=== PATIENT | female | born 2000 | race African-American/Black ===

== ENCOUNTER 2022-05-03 20:47 | Emergency (ER) | payer BC, SELFPAY ==
[2022-05-03 20:48] VITALS: BP 118/51; PULSE 112; RESP 20; TEMP 36.7; O2SAT 98
--- NOTE | 2022-05-03 20:55 | ED.ALLEREA ---
HPI - Allergic Reaction General Chief complaint: Allergic Reaction Stated complaint: allergic reaction Time Seen by Provider: 05/03/22 20:54 Source: patient and RN notes reviewed Mode of arrival: ambulatory Limitations: no limitations History of Present Illness HPI narrative: Patient is 21 years old white female came to the emergency room with itching, hives, hard to breathe, tingling in her throat. Started on Thursday which is 4 days ago after starting on Z-Artur for bilateral ear infection. Patient went see her family physician yesterday. The Z-Artur and the start of her on doxycycline, Benadryl and Medrol Dosepak. Patient received 6 tablets yesterday and nothing today. History of penicillin allergy. Related Data Allergies Allergy/AdvReac Type Severity Reaction Status Date / Time Penicillins Allergy Swelling Verified 05/03/22 20:52 of Lip/Tongue/Throat Review of Systems Review of Systems: All systems reviewed & are unremarkable except as noted in HPI and below Exam Narrative: General appearance: Well-developed, well-nourished Skin: Erythematous skin of the face trunk and abdomen Head: Normocephalic, nontraumatic Eyes: Clear conjunctiva ENT: Oropharynx normal, ears normal, nose normal Neck: Supple, nontender Chest and respiratory: Airway patent, no respiratory distress, no accessory muscle use Heart: Regular rate/rhythm Abdomen: Soft, nontender, no organomegaly, quiet bowel sounds Vascular: Normal peripheral pulses, normal capillary refill. 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, no gross motor deficit Course Course Emergency Course: Improving Vital Signs Vital signs: Vital Signs Temperature 36.7 C 05/03/22 20:48 Pulse Rate 112 H 05/03/22 20:48 Respiratory Rate 05/03/22 20:48 Blood Pressure 118/51 L 05/03/22 20:48 Pulse Oximetry 98 05/03/22 20:48 Oxygen Delivery Room Air 05/03/22 20:48 Temperature 36.7 C 05/03/22 20:48 Pulse Rate 112 H 05/03/22 20:48 Respiratory Rate 20 05/03/22 20:48 Blood Pressure 118/51 L 05/03/22 20:48 Pulse Oximetry 98 05/03/22 20:48 Oxygen Delivery Room Air 05/03/22 20:48 MDM - Allergic Reaction Differential Diagnosis Differential diagnosis: Likely allergic reaction and adverse reaction to drug Critical Care Time Critical Care Time Critical Care Time: Yes Total Critical Care Time: 20 Discharge Plan Discharge Clinical Impression: Allergic reaction Patient Disposition: Home, Self-Care Condition: Improved Instructions: Antibiotic Form Additional Instructions: Return if symptoms are worsening , call your family physician for appointment, take Tylenol as as needed for aches and pain, continue home medications. You are allergic to Z-Artur and please do not take it in the future. Stop Benadryl and Medrol Dosepak. Prescriptions: New prednisone 20 mg tablet 40 mg PO DAILY 5 Days Qty: 10 0RF Zyrtec 10 mg capsule 10 mg PO DAILY PRN (Reason: allergy symptoms) Qty: 10 0RF Follow-up/Referrals: PHYSICIAN,ANIMAL CYTOLOGIST [Primary Care Provider] - Enzo Mejía MD [Physician] - 05/05/22
[2022-05-03 21:17] VITALS: PULSE 78; RESP 23; O2SAT 97
[2022-05-03] MEDS: EPINEPHrine HCL INJ 1 MG/ML AMPUL 0.3 MG IM (21:19)
[2022-05-03] MEDS: LORATADINE 10 MG TABLET PO (21:19)
[2022-05-03] MEDS: predniSONE 20 MG TABLET 60 MG PO (21:19)
[2022-05-03 22:51] VITALS: BP 136/76; PULSE 94; RESP 18; O2SAT 98
== END 2022-05-03 22:54 | disposition home or self-care (01) ==
PROVIDERS: Emergency Provider Emergency Medicine
DX: L50.9 Urticaria, unspecified (principal); R20.2 Paresthesia of skin; R06.00 Dyspnea, unspecified; T50.915A Adverse effect of multiple unspecified drugs, medicaments and biological substances, initial encounter
CPT/HCPCS: 96372; 99283; A9270; J0171; J7512

== ENCOUNTER 2022-11-22 12:13 | Emergency (ER) | payer BC, SELFPAY ==
[2022-11-22] VITALS (9 sets, daily range): BP systolic 92–124; BP diastolic 62–79; PULSE 68–84; RESP 14–23; TEMP 36.4–36.9; O2SAT 99–100
--- NOTE | 2022-11-22 13:01 | ED.ALLEREA ---
HPI - Allergic Reaction General Chief complaint: Allergic Reaction Stated complaint: Allergic Reaction to Antibiotics Time Seen by Provider: 11/22/22 12:53 Source: patient Mode of arrival: ambulatory Limitations: no limitations History of Present Illness HPI narrative: Patient drove herself to the emergency room complaining of itching rash over the last 2 days. Patient was diagnosed of bronchitis 6 days ago started on Omnicef, history of allergy to penicillin, last Omnicef intake was prior to arrival to the emergency room. Patient denies shortness of breath, difficult swallowing or difficulty breathing. Related Data Allergies Allergy/AdvReac Type Severity Reaction Status Date / Time azithromycin Allergy Swelling Verified 11/22/22 12:24 of Lip/Tongue/Throat cefdinir [From Omnicef] Allergy Swelling Verified 11/22/22 12:24 of Lip/Tongue/Throat Penicillins Allergy Swelling Verified 11/22/22 12:24 of Lip/Tongue/Throat Review of Systems Review of Systems: All systems reviewed & are unremarkable except as noted in HPI and below Exam Narrative: General appearance: Well-developed, well-nourished Skin: Hives and flushed face neck and chest anteriorly Head: Normocephalic, nontraumatic Eyes: Clear conjunctiva ENT: Oropharynx normal, ears normal, nose normal Neck: Supple, nontender Chest and respiratory: Airway patent, no respiratory distress, no accessory muscle use Heart: Regular rate/rhythm Abdomen: Soft, nontender, no organomegaly, quiet bowel sounds Vascular: Normal peripheral pulses, normal capillary refill. Musculoskeletal: Normal range of motion, nontender back Neurologic: Alert and oriented ?3, MANAGER [employer] RELATIONS is normal as tested, no gross motor deficit Course Reevaluation(s) Reevaluation #1: Patient feeling much better, itching is 0 out of 10 compared to 8 out of 10 on arrival to the ED after epinephrine and prednisone. I did not give Benadryl to the patient because she is driving back home. Date: 11/22/22 Time: 13:50 Vital Signs Vital signs: Vital Signs Temperature 36.9 C 11/22/22 12:18 Pulse Rate 74 11/22/22 12:18 Respiratory Rate 18 11/22/22 12:18 Blood Pressure 124/79 11/22/22 12:18 Pulse Oximetry 100 11/22/22 12:18 Oxygen Delivery Room Air 11/22/22 12:18 Temperature 36.9 C 11/22/22 12:18 Pulse Rate 76 11/22/22 13:15 Respiratory Rate 22 H 11/22/22 13:15 Blood Pressure 97/63 L 11/22/22 12:46 Pulse Oximetry 100 11/22/22 13:15 Oxygen Delivery Room Air 11/22/22 12:18 MDM - Allergic Reaction MDM Narrative Medical decision making narrative: Patient presents with allergic reaction to Omnicef. History of allergy to penicillin, started on Omnicef 6 days ago for possible bronchitis. Patient's symptoms are not improving still coughing up clear sputum with nasal congestion. Physical examination showed no wheezing or rhonchi, oxygen level on room air 100%, scattered rash mainly face, chest and upper extremity. In the ED patient received epinephrine and prednisone, with remarkable improvement. Benadryl was not given because patient is driving back home. Patient will be discharged on prednisone, Zyrtec and Mucinex for drug-induced allergy plus upper respiratory viral infection Differential Diagnosis Differential diagnosis: Likely allergic reaction, urticaria and other Medical Records Attestation: I reviewed the patient's medical records. Critical Care Time Critical Care Time Critical Care Time: Yes Total Critical Care Time: 10 Discharge Plan Discharge Clinical Impression: Allergic reaction, Upper respiratory infection, viral Patient Disposition: Home, Self-Care
[2022-11-22] MEDS: predniSONE 20 MG TABLET 60 MG PO (13:25)
[2022-11-22] MEDS: EPINEPHrine HCL INJ 1 MG/ML AMPUL 0.3 MG IM (13:25)
== END 2022-11-22 14:15 | disposition home or self-care (01) ==
PROVIDERS: Emergency Provider Emergency Medicine; PCP Family Medicine
DX: R21 Rash and other nonspecific skin eruption (principal); T36.1X5A Adverse effect of cephalosporins and other beta-lactam antibiotics, initial encounter; J06.9 Acute upper respiratory infection, unspecified
CPT/HCPCS: 96372; 99283; J0171; J7512